=== PATIENT | male | born 1970 | race Caucasian/White ===

== ENCOUNTER 2025-02-02 04:10 | Emergency (ER) | payer SELFPAY ==
[2025-02-02 04:18] VITALS: BP 147/87
--- NOTE | 2025-02-02 04:32 | ED.MUSCINJ ---
HPI-Injury
General
Chief Complaint: Musculo-Skeletal Complaint
Source: patient and ambulance crew
Exam Limitations: none
Time Seen by Provider: 02/02/25 04:19
Nursing documentation reviewed up to this point in time: agreed with
History of Present Illness-Injury
Is this injury a work related problem?: Yes
Is pt an associate of [facility]?: No
Initial Injury comments:
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
Past History
Past History
ED Past Medical History: Other (Lymphedema LLE)
ED Past Surgical History: Orthopedic (Left knee surgery)
Social History
Tobacco: Former smoker
Alcohol: Occasional
Drug: None
Personal:
Living: with family
Employment: Employed
Review of Systems
Review of Systems
All Other Systems: Not applicable
ABD/GI: Reports no symptoms
: Reports no symptoms
Musculoskeletal: Reports joint pain
Phy Exam
Physical Exam
Physical Exam:
Physical Exam
General: no apparent distress, not acutely ill
Neck: No tongue bite
Heart: s1/s2 regular rate and rhythm, no murmur. equal radial pulses.
Lungs: no acute respiratory distress. clear bilaterally
Neuro: alert and oriented. no focal neurological deficits
Skin: no rash
Psychiatric: well kept. interactive and cooperative
Extremities: Tender at the left lateral malleolus no fibular head tenderness base of the fifth nontender Achilles intact
Injury Course
Orders/Labs/Results
Orders:
Orders
02/02/25 04:15
Ankle, left 3 view CR [CR Ankle - Left Min 3 Views ] Urgent
Comment:
Reason For Exam: pain, swelling
02/02/25 04:53
Air Splint Left-Treatment ONCE
Crutches-Treatment ONCE
Ibuprofen [Motrin] 600 mg PO NOW STA
MDM/Problems Addressed
Differential Diagnosis Includes:
Ankle fracture, sprain dislocation
MDM/Problems Addressed:
Ankle pain
*Radiology
Radiology exam reviewed: preliminary read by ED provider
*Pulse Oximetry
SaO2: 98
Oxygen Mode of Delivery: Room air
Patient hypoxic: no
*Critical Care Note
Total Time (30-74mins, 75-104mins- exclusive of procedures): Not Applicable
Update Note
Update Note:
Update x-ray noted looks like a minimally displaced distal fibular fracture will mobilize, nonweightbearing follow-up orthopedics
ED Attending Note
-
Portions of this chart may have been created with voice recognition software.� Occasional wrong word or��sound alike� substitutions may have occurred due to the inherent limitations of voice recognition software.
Discharge Plan
Departure
Patient Disposition: Home (Routine Discharge)
Date of Disposition: 02/02/25
Time of Disposition: 04:55
Patient with high blood pressure during this ER visit?: No
Condition: Good
Discharge Problem:
Ankle fracture
Instructions: How to Use Crutches, Ankle Fracture (DC), Ibuprofen
Prescriptions:
New
ibuprofen 600 mg tablet
600 mg PO Q8H PRN (Reason: Pain) Qty: 20 0RF
oxycodone-acetaminophen [Percocet] 5-325 mg tablet
1 tab PO Q6HPRN PRN (Reason: pain) Qty: 14 0RF
No Action
clotrimazole [Athlete's Foot (clotrimazole)] 1 % Cream
1 applic topical BID 10 Days Qty: 30 0RF
amoxicillin-pot clavulanate 875-125 mg Tablet
1 tab PO Q12 Qty: 14 0RF
Referrals:
Phi Costa MD [Active, Orthopedics] - Next open appointment
Interventions
Interventions:
*General Assessment Last Done: 02/02/25 04:12
*Neglect/Abuse Screening Last Done: 02/02/25 04:12
*ED COVID-19 Vaccine History Last Done: 02/02/25 04:12
*ED Influenza Vaccine History Last Done: 02/02/25 04:19
[facility] Fall Risk Assessment Tool Last Done: 02/02/25 04:12
ED-Musculoskeletal Assessment Last Done: 02/02/25 04:16
Discharge Date and Time
Print Language: TURKISH
[2025-02-02] MEDS: MOTRIN 600 MG PO (05:03)
== END 2025-02-02 05:43 | disposition home or self-care (01) ==
LOC: EMR 04:10
PROVIDERS: EMERGENCY PHYSICIAN Emergency Medicine; FAMILY PHYSICIAN Student in an Organized Health Care Education/Training Program
DX: S82.832A Other fracture of upper and lower end of left fibula, initial encounter for closed fracture (principal); W00.0XXA Fall on same level due to ice and snow, initial encounter; X50.1XXA Overexertion from prolonged static or awkward postures, initial encounter; Y99.0 Civilian activity done for income or pay; Z87.891 Personal history of nicotine dependence
CPT/HCPCS: 99283; 73610